=== PATIENT | male | born 1965 | race Caucasian/White ===

== ENCOUNTER 2021-11-05 10:09 | Emergency (ER) | payer MEDICAID ==
[~2021-11-05] VITALS: Ht 175.3 cm; Wt 86.4 kg
[2021-11-05 10:31] VITALS: BP 151/93
[2021-11-05] MEDS ORDERED: LISI20TA28 PO (12:01)
== END 2021-11-05 12:30 | disposition home or self-care (01) ==
LOC: ER 10:13
DX: Z76.0 Encounter for issue of repeat prescription (principal); I10 Essential (primary) hypertension
CPT/HCPCS: 99281

== ENCOUNTER 2022-11-29 06:09 | Day surgery (SDC) | payer MEDICAID ==
[2022-11-24 10:40] LABS: BASOPHILS # (AUTO) 0.1 X10'3 (0-0.2); BASOPHILS % (AUTO) 1.2 % (0-1); EOSINOPHILS # (AUTO) 0.2 X10'3 (0-0.9); EOSINOPHILS % (AUTO) 2.5 % (0-6); LYMPHOCYTES # (AUTO) 1.7 X10'3 (1.1-4.8); LYMPHOCYTES % (AUTO) 22.1 % (21-51); MEAN CORPUSCULAR HEMOGLOBIN 31.3 PG (27.0-31.0); MEAN CORPUSCULAR HGB CONC 34.2 g/dL (33.0-36.5); MEAN CORPUSCULAR VOLUME 91.6 FL (78-98); MEAN PLATELET VOLUME 6.9 FL (7.4-10.4); MONOCYTES # (AUTO) 0.8 X10'3 (0-0.9); MONOCYTES % (AUTO) 10.4 % (2-12); NEUTROPHILS # (AUTO) 4.9 X10'3 (1.8-7.7); NEUTROPHILS % (AUTO) 63.8 % (42-75); PRE OP HEMATOCRIT 45.4 % (42.0-52.0); PRE OP HEMOGLOBIN 15.5 g/dL (14.0-17.9); PRE OP PLATELET COUNT 275 X10'3 (140-440); RED BLOOD COUNT 4.96 X10'6 (4.70-6.10); RED CELL DISTRIBUTION WIDTH 13.8 % (11.5-14.5)
[2022-11-24 10:51] LABS: ALBUMIN 3.6 G/DL (3.4-5.0); ALBUMIN/GLOBULIN RATIO 0.9 (1.1-1.5); ALKALINE PHOSPHATASE 68 IU/L (46-116); BLOOD UREA NITROGEN 15 MG/DL (7-18); BUN/CREATININE RATIO 14.6 (10.0-20.0); CALCIUM 9.6 MG/DL (8.5-10.1); CHLORIDE 104 MMOL/L (99-107); CREATININE 1.03 MG/DL (0.60-1.10); PRE OP ALT 38 U/L (30-65); PRE OP ANION GAP 11 (8-16); PRE OP AST 17 U/L (10-37); PRE OP BILIRUB, TOTAL 0.5 MG/DL (0.0-1.0); PRE OP GLUCOSE 134 MG/DL (70-104); PRE OP POTASSIUM 4.1 MMOL/L (3.4-5.1); PRE OP SODIUM 141 MMOL/L (135-145); TOTAL PROTEIN 7.4 G/DL (6.4-8.2); eGFR 74 ML/MIN
[~2022-11-29] VITALS: Ht 175.3 cm; Wt 91.7 kg
[2022-11-29] VITALS (10 sets, daily range): BP systolic 141–162; BP diastolic 73–98; PULSE 48–66; RESP 11–19; TEMP 97.4; O2SAT 96–99
[~2022-11-29 06:09] MED LIST: KETO30CR21 TOP; LISI10TA27 PO; cefazolin 2gm/D5W 100mL 100 ML IV ONE; famotidine 20mg tablet PO ONE; ringers solution, lacted 1,000 ML IV SCH
[2022-11-29] MEDS ORDERED: BUPIVAcaine/PF 2.5 mg/ml (0.25%) 30ml vial ONE (07:57)
[2022-11-29] MEDS ORDERED: LIDOcaine 1% (10mg/ml)w/preservative inj. 20ml MDV ONE (07:57)
[2022-11-29] MEDS ORDERED: BUPIVACAINE liposomal/PF 13.3 MG/ML vial IM ONE (07:58)
[2022-11-29] MEDS ORDERED: fentaNYL/PF 50MCG/1 ML 2ML syringe ONE (08:16)
[2022-11-29] MEDS ORDERED: midazolam 1 mg/ML 2ml injection ONE (08:16)
[2022-11-29] MEDS ORDERED: sevoflurane 250ml liquid IH ONE (08:16)
[2022-11-29] MEDS ORDERED: propofol inj 20 ML IV ONE (08:18)
[2022-11-29] MEDS ORDERED: rocuronium 10mg/ml inj IV ONE (08:18)
[2022-11-29] MEDS ORDERED: dexamethasone sod phosphate 4mg/ml inj. ONE (08:50)
[2022-11-29] MEDS ORDERED: ePHEDrine 50MG/ML INJ. ONE (08:50)
[2022-11-29] MEDS ORDERED: LIDOCAINE HCL 10 MG/ML 1% MDV 50ml injection IJ ONE (08:56)
[2022-11-29] MEDS ORDERED: BUPIVAcaine 0.25% w/Epi /PF 30ml vial IJ ONE (08:56)
[2022-11-29] MEDS ORDERED: ringers solution, lacted 1,000 ML IV SCH (09:20)
[2022-11-29] MEDS ORDERED: meperidine/PF 25mg/ml syringe IV PRN ×3 (09:20)
[2022-11-29] MEDS ORDERED: proCHLORperazine 10 MG/2 ml inj IV PRN (09:20)
[2022-11-29] MEDS ORDERED: morphine 2 MG/ML inj. syringe IV PRN (09:20)
[2022-11-29] MEDS ORDERED: morphine 4 MG/ML inj SYRINge IV PRN (09:20)
[2022-11-29] MEDS ORDERED: ondansetron/PF 4mg/2ml inj IV PRN (09:20)
[2022-11-29] MEDS ORDERED: ondansetron/PF 4mg/2ml inj ONE (09:38)
[2022-11-29] MEDS ORDERED: neostigmine methylsulfate 1 MG/ML 10ml vial ONE (09:43)
[2022-11-29] MEDS ORDERED: glycopyrrolate 0.2mg/ml inj ONE (09:43)
--- NOTE | 2022-11-29 09:56 | NUR ---
Received from OR via , accompanied by Anesthesiologist DR DAVILA and report given by Anesthesiolgist. VSS ON MASK SATTING AT 99% ON 8 LITERS. IV IN RFA 20G NO ISSUES. LAPSITES X 3 WITH STERI STRIPS AND ADB BINDER. Addendum: 11/29/22 at 1023 by Radha Payan RN Amended: Links added.
[2022-11-29] MEDS ORDERED: oxyCODONE/APAP 5-325mg tablet PO PRN (10:10)
[2022-11-29] MEDS ORDERED: oxyCODONE/APAP 5-325mg tablet PO STA (10:43)
--- NOTE | 2022-11-29 11:06 | NUR ---
PATIENT MEETS DISCHARGE CRITERIA. VSS, IV DC'D WITH NO ISSUES. PATIENT EDUCATED ON DISCHARGE INSTRUCTIONS. GAVE PATIENT HIS CONTACT CASE AND PHONE AND WHEELED PATIENT TO THE CAR WHERE HIS RIDE WAS WAITING
== END 2022-11-29 11:06 | disposition home or self-care (01) ==
LOC: PAS 06:09
PROVIDERS: ATTEND Surgery
DX: K42.0 Umbilical hernia with obstruction, without gangrene (principal); M62.08 Separation of muscle (nontraumatic), other site; I10 Essential (primary) hypertension; Z87.891 Personal history of nicotine dependence; Z98.890 Other specified postprocedural states; Z79.899 Other long term (current) drug therapy; Z72.89 Other problems related to lifestyle
CPT/HCPCS: 36415; 49592; 64488; 80053; 82948; 85025; 93005; C1781; C9290; J0690; J1100; J2250; J2405; J2704; J2710; J3010; J3490; J7030; J7120; S0020; Z7506; Z7508; Z7512; A4215; A4618